=== PATIENT | male | born 1945 | race Caucasian/White ===

== ENCOUNTER 2019-02-18 09:24 | Inpatient (IN) ==
--- NOTE | 2019-02-18 09:34 | Anesthesia Evaluation PreOp ---
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 (denies residual deficit---on plavix, last dose taken 02/12/2019) Other Medical History: Diabetes Type II Anesthesia History: Past Anesthesia (no prior GA) Alcohol Use: rarely Drug use: none Medications and Allergies Ascorbic Acid [Vitamin C] 500 mg PO DAILY 08/19/16 [History] Aspirin 81 mg PO DAILY 08/19/16 [History] Cinnamon Bark [Cinnamon] 500 mg PO DAILY 08/19/16 [History] Lisinopril/Hydrochlorothiazide [Zestoretic 20-12.5 mg Tablet] 1 tab PO DAILY 08/19/16 [History] Pioglitazone HCl [Actos] 30 mg PO DAILY 08/19/16 [History] Clopidogrel [Plavix] 75 mg PO DAILY 02/18/19 [History] Multivitamin [One-Daily Multi-Vitamin] 1 tab PO DAILY 02/18/19 [History] Allergy/AdvReac Type Severity Reaction Status Date / Time aspirin [From Aggrenox] Allergy Headache Verified 02/18/19 10:05 dipyridamole [From Aggrenox] Allergy Headache Verified 02/18/19 10:05 metformin Allergy Rash Verified 08/19/16 07:30 sitagliptin [From Januvia] Allergy Rash Verified 02/18/19 10:05 - Meds/Allergy Pre-op Review Medications Reviewed: Yes Allergies Reviewed: Yes Beta Blockers on Current Med List: No Anesthesia Results - Labs Laboratory Tests 02/08/19 02/08/19 02/08/19 08:01 08:02 08:02 WBC 4.8 Hgb 15.6 Hct 46.2 Plt Count 231 PT 12.0 INR 1.1 APTT 31.9 Sodium 136 Potassium 4.0 BUN 14 Creatinine 0.99 - Imaging EKG: report reviewed (02/18/2019 sinus rhythm, marked LAD, moderate IV conduction delay) Additional studies: 02/04/2019 Stress Impression: Perfusion imaging was negative for ischemia or infarct. Pharmacologic ECG was negative for ischemia at the level of heart rate achieved. Gated EF = >70%. 02/02/2019 Echo Impressions: LVEF 60%. Mild left ventricular diastolic dysfunction. Definity echo contrast was used. Normal right ventricular structure and function. Mild mitral regurgitation. No pulmonary hypertension. No evidence of PFO with agitated saline contrast. 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
[2019-02-18] MEDS ORDERED: Albuterol 2.5 MG/3 ML NEBULIZER IH ONE (09:41)
[2019-02-18] MEDS ORDERED: CeFAZolin Syr 2,000MG/20 ML 2,000 MG/20 ML SYRINGE IVPB ONE (09:41)
[2019-02-18] MEDS ORDERED: Ringers Solution, Lactated 1,000 ML IVC SCH (09:45)
[2019-02-18] MEDS ORDERED: Lidocaine -MPF 4% 5 ML AMPUL ONE (09:56)
[2019-02-18] MEDS ORDERED: Ondansetron 4 MG/2 ML VIAL ONE (09:56)
[2019-02-18] MEDS ORDERED: Dexamethasone 4 MG/ML VIAL ONE (09:56)
[2019-02-18] MEDS ORDERED: *HR* Heparin 5,000 UNIT/ML VIAL ONE ×2 (09:56→14:47)
[2019-02-18] MEDS ORDERED: Lidocaine -MPF 2% 2 ML VIAL ONE ×2 (09:56→12:01)
[2019-02-18] MEDS ORDERED: *HR* Propofol 200 MG/20 ML VIAL IVP ONE (09:56)
[2019-02-18] MEDS ORDERED: *HR* Remifentanil 1 MG VIAL IVP ONE (10:04)
[2019-02-18] MEDS ORDERED: D5% in Lactated Ringers 1,000 ML IVC ONE ×2 (10:05→10:26)
[2019-02-18] MEDS ORDERED: *HR* Phenylephrine 10 MG/ML VIAL ONE (10:10)
[2019-02-18] MEDS ORDERED: Ondansetron 4 MG/2 ML VIAL IVP ONE (10:23)
[2019-02-18] MEDS ORDERED: *HR* Promethazine 25 MG/ML VIAL IVP PRN (10:23)
[2019-02-18] MEDS ORDERED: *HR* OxyCODONE Immed Rel 5 MG TABLET PO PRN ×2 (10:23→17:01)
[2019-02-18] MEDS ORDERED: *HR* HYDROmorphone (PF) 1 MG/ML SYRINGE IVP PRN (10:23)
[2019-02-18] MEDS ORDERED: Heparin 1,000 UNITS/500 mL 500 ML ONE ×2 (10:37→12:08)
[2019-02-18] MEDS ORDERED: Vancomycin 1,000 MG, Sodium Chloride IRRigation 1,000 ML IR ONE (11:20)
--- NOTE | 2019-02-18 11:58 | History & Physical Report ---
Date of Encounter: 02/18/19 Time of Encounter: 11:55 24 Hour HP Update - Instructions Instructions: If the History and Physical is less than 30 days old and was completed prior to A.M. admission and or procedure and has NOT been updated on calendar day of procedure please complete this update prior to performing procedure. - Update Patient reports changes in Medical Condition: No Changes in examination, assessment, or condition: No Changes in Medication: No Preop tests/diagnostics Reviewed: Yes Surgery Remains Indicated: Yes Consent for Planned Operative Procedure(s) Verified: Yes - Pre-Operative Checklist Preoperative Checklist Indicated: Yes Prophylactic Antibiotic Ordered: Yes (vancomycin due to MRSA risk) Home Medications Include Beta Joseph: No Beta Joseph Taken Today (Day of Surgery): No Beta Joseph Taken Yesterday (Day Prior to Surgery): No Is VTE Prophylaxis Indicated?: Yes
[2019-02-18] MEDS ORDERED: *HR* FentaNYL (PF) 100 MCG/2 ML VIAL ONE ×2 (12:02→12:48)
[2019-02-18] MEDS ORDERED: *HR* Midazolam HCl 2 MG/2 ML VIAL ONE (12:02)
[2019-02-18] MEDS ORDERED: Bupivacaine-MPF 0.25% 10 ML VIAL ONE (12:08)
[2019-02-18] MEDS ORDERED: Protamine Sulfate 50 MG/5 ML VIAL IVP ONE (12:08)
[2019-02-18] MEDS ORDERED: Calcium Gluconate 1,000 MG/10 ML VIAL ONE (13:25)
--- NOTE | 2019-02-18 13:28 | Anesthesia Procedures ---
Date of Encounter: 02/18/19 Time of Encounter: 12:30 Procedures: Anesthesia - Arterial Line Consent obtained: written consent Time out performed: Yes Sedation: Versed (mg): 2 Sedation: Fentanyl (mcg): 100 Supplemental Oxygen via Nasal Cannula (L/min): 2 Local Anesthetic: Lidocaine 1% Amount of Anesthetic used (mls): 3 Size (Gauge): 20 Length (inches): 1 3/4 Technique Used: sterile prep, guide wire technique Post-Procedure: line taped into place, dry sterile dressing placed Patient tolerated procedure: well Complications: none Site: Radial R Comments: procedure done ,in holding room, second attempt
[2019-02-18] MEDS ORDERED: NiCARdipine 2.5 MG/10 ML Syringe IVPB ONE (15:12)
[2019-02-18] MEDS ORDERED: *HR* HYDROMORPHONE 2 MG/ML VIAL ONE (15:31)
[2019-02-18] MEDS ORDERED: *HR* Labetalol 20 MG/4 ML SYRINGE IVP ONE (15:44)
--- NOTE | 2019-02-18 16:16 | Operative Note ---
Date of procedure: 02/18/19 Pre-op diagnosis: Symptomatic right internal carotid artery stenosis Post-op diagnosis: same Procedure: Right carotid endarterectomy Complications: None Anesthesia: GETA Surgeon: Adelfo Ross Was there an wellness assistant present: No Estimated blood loss (cc): 100 Specimen: Right carotid plaque Condition: stable Disposition: PACU Procedure in Detail: Indications: The patient is a 73-year-old male with a history of hypertension, diabetes and carotid stenosis. The patient sustained a right hemispheric transient ischemic attack and was found have a 80-99% right internal carotid artery stenosis. A right carotid endarterectomy was recommended to reduce his risk of cerebrovascular accident. Procedure: The patient was identified in the preoperative area. The risks, benefits, and alternatives of the procedure were discussed and all questions were answered. The patient was then taken to the operating room and placed in supine position on the operating table. After the induction of general endotracheal anesthesia, the patient was cleaned and draped in normal sterile fashion. A longitudinal incision was made anterior to the sternocleidomastoid muscle. Hemostasis was obtained via electrocautery. Through a process of blunt, sharp, and electrocautery dissection, the platysma was traversed and the jugular vein was identified. The facial vein was dissected, clamped, divided and ligated with a 2-0 silk suture ligature. The jugular vein was retracted to expose the carotid bifurcation. The patient received 3000 units of heparin intravenously at this time. Proximal dissection of the common and external carotid arteries were performed circumferentially. Dissection of the internal carotid was performed circumferentially. Vessels loops were passed around the internal and external carotid and an umbilical tape was passed from the common carotid artery. The patient received an additional 2000 units of heparin intravenously. Additional heparin was given throughout the case to maintain adequate antic oagulation. After waiting adequate time for the heparin to circulate, the vessels were occluded and a longitudinal arteriotomy was made into the common carotid artery and extended into the internal carotid beyond the plaque. The plaque was long, extended distally and was heavily calcified. Vigorous pulsatile retrograde flow was noted from the internal carotid artery upon release of the vessel loop. Due to the rapid pulsatile retrograde flow, no shunt was placed. A dental Lentner was then used to perform a standard endarterectomy. Proximal and distal endpoints were inspected. No elevated flaps were noted. A Hemashield patch was cut to fit the defect and sutured in place with running 6-0 Prolene. Prior to completing the closure, each vessel was flushed and then reoccluded. Heparinized saline was infused into the lumen. The patch was completed. Flow was restored in the external carotid artery, followed the common carotid artery, lastly the internal carotid artery was opened. A low resistance arterialized signal was present within the internal carotid artery beyond the patch. Thrombin and Gelfoam were used to aid in hemostasis. Meticulous hemostasis was obtained throughout the wound with electrocautery. Platelet rich and platelet poor plasma were infused into the wounds. The sternocleidomastoid was reapproximated with interrupted 3-0 Vicryl. Platelet rich and platelet poor plasma were infused into the wound. A TLS drain was brought through a separate stab incision and sutured in place with 0 silk suture. The platysma was reapproximated with running 3-0 Vicryl. Local anesthetic was infused in the skin. A 3-0 Monocryl was used to reapproximate the skin. A sterile dressing was applied. The patient was extubated, taken to the recovery room in stable condition.
--- NOTE | 2019-02-18 16:38 | Anesthesia Evaluation Post Op ---
Date of Encounter: 02/18/19 Time of Encounter: 16:38 - Vital Signs Vital Signs: Vital Signs/O2 Sat, Most Current Temp Pulse Resp BP Pulse Ox 98.1 F 90 16 178/91 95 02/18/19 16:25 02/18/19 16:25 02/18/19 16:25 02/18/19 16:25 02/18/19 16:25 - Lungs Lungs: Clear Ascult./Percussion - Airway Airway: Non-obstructed - Cardiovascular Regular Rate - Mental Status Mental Status: Alert & Oriented, Answers Appropriately - Pain Pain Scale: 3 Pain Scale used: Numeric (1 - 10) - Nausea Vomiting Nausea Vomiting: Not Present - Hydration Hydration: Ice chips, Santiago catheter - Discharge PostOp Status: Transfer Patient to floor
[2019-02-18] MEDS ORDERED: Ondansetron 4 MG/2 ML VIAL IVP PRN (17:01)
[2019-02-18] MEDS ORDERED: Naloxone 0.4 MG/ML INJ IVP PRN (17:01)
[2019-02-18] MEDS ORDERED: *HR* HYDROcodone/Acet 5/325 mg TABLET PO PRN (17:01)
[2019-02-18] MEDS ORDERED: 0.9 % Sodium Chloride 1,000 ML IVC SCH (17:01)
[2019-02-18] MEDS ORDERED: Acetaminophen 325 MG TABLET PO PRN (17:01)
[2019-02-18] MEDS: *HR* Metoprolol 5 MG/5 ML VIAL IVP SCH (18:09)
[2019-02-18] MEDS: *HR* Labetalol 20 MG/4 ML SYRINGE IVP PRN ×2 (18:58→21:36)
[2019-02-19] MEDS: *HR* Metoprolol 5 MG/5 ML VIAL IVP SCH ×2 (00:14→05:04)
[2019-02-19] MEDS ORDERED: *HR* Heparin 5,000 UNIT/ML VIAL SQ SCH ×2 (06:00)
[2019-02-19 07:19] VITALS: BP 126/73
--- NOTE | 2019-02-19 07:24 | Discharge Summary ---
Orders not resulted at time of discharge: Pending orders 02/17/19 08:09 Red Blood Cells [BBK] Routine 02/18/19 13:17 EKG [ECG 12 lead ECG] [ECG] Stat 02/18/19 14:13 Surgical Pathology [PTH] Routine Date of Encounter: 02/19/19 Time of Encounter: 07:45 - Discharge Diagnosis (1) Carotid stenosis, right Priority: Primary Status: Chronic Comments: The patient is postoperative day #1 after right carotid endarterectomy. His incision is healing well. He has no hematoma. His motor and sensory exam are normal. He will be discharged today. (2) Essential hypertension Priority: Secondary Status: Chronic (3) Type 2 diabetes mellitus with other circulatory complications Priority: Secondary Status: Chronic - Hospital Course Hospital course: Mr. Quiros is a 73 year old male former smoker with a history of hypertension and hyperlipidemia. The patient was found have an 80-99% symptomatic right internal carotid stenosis. He presents he sustained a right hemispheric transient ischemic attack. He is admitted on 02/18/2019. He was taken to the operating room where he underwent a right carotid endarterectomy. He tolerated the procedure well. On postop day #1 his neurologic exam was intact. His incision was healing well. He was discharged in stable condition without complication. - Time Spent with Patient Total time spent providing and/or coordinating discharge services: - Discharge Medications Prescriptions: New OxyCODONE/APAP 5/325 [Percocet 5/325 MG] 1 each PO Q6HR PRN 5 Days #20 tablet PRN Reason: Postoperative pain Continued Aspirin 81 mg PO DAILY Ascorbic Acid [Vitamin C] 500 mg PO DAILY Pioglitazone HCl [Actos] 30 mg PO DAILY Lisinopril/Hydrochlorothiazide [Zestoretic 20-12.5 mg Tablet] 1 tab PO DAILY Cinnamon Bark [Cinnamon] 500 mg PO DAILY Multivitamin [One-Daily Multi-Vitamin] 1 tab PO DAILY Discontinued Clopidogrel [Plavix] 75 mg PO DAILY Home Medications: Ascorbic Acid [Vitamin C] 500 mg PO DAILY 08/19/16 [History] Aspirin 81 mg PO DAILY 08/19/16 [History] Cinnamon Bark [Cinnamon] 500 mg PO DAILY 08/19/16 [History] Lisinopril/Hydrochlorothiazide [Zestoretic 20-12.5 mg Tablet] 1 tab PO DAILY 08/19/16 [History] Pioglitazone HCl [Actos] 30 mg PO DAILY 08/19/16 [History] Multivitamin [One-Daily Multi-Vitamin] 1 tab PO DAILY 02/18/19 [History] OxyCODONE/APAP 5/325 [Percocet 5/325 MG] 1 each PO Q6HR PRN 5 Days #20 tablet 02/19/19 [Rx] Allergies/Adverse Reactions: Allergy/AdvReac Type Severity Reaction Status Date / Time aspirin [From Aggrenox] Allergy Headache Verified 02/18/19 10:05 dipyridamole [From Aggrenox] Allergy Headache Verified 02/18/19 10:05 metformin Allergy Rash Verified 08/19/16 07:30 sitagliptin [From Januvia] Allergy Rash Verified 02/18/19 10:05 Date of admission: 02/18/19 17:00 Primary care physician: Kain Ovalle Procedure(s) Performed: Right carotid endarterectomy Discharging clinician: Adelfo Ross Anticipated date of discharge: 02/19/19 Exam Vital Signs, Last 4 Hours Temp Pulse Resp BP Pulse Ox 02/19/19 07:16 98.3 F 101 18 126/73 96 02/19/19 04:13 98.2 F 103 17 131/75 95 02/19/19 04:07 101 18 131/75 93 02/19/19 03:28 133/82 General: Present: Conversant, No Apparent Distress HEENT: Present: Trachea midline, Pupils equal Neck: Present: Other (Incision clean, dry and intact without erythema or drainage, no hematoma, no pulsatile mass) Cardiac: Present: Reg Rate and Rhythm Lungs: Present: Normal Breath Sounds Neuro: Present: Alert and responsive, No focal deficits noted Abdomen: Present: Soft Vascular: Absent: Cyanosis, Edema - Patient Status Disposition: Home, Self-Care Condition: Good Functional capacity at discharge: independent ambulation Overall status at discharge: patient is back to baseline - Discharge Instructions Instructions: Carotid Endarterectomy (DC) Follow Up With: Adelfo Ross MD [Partnered Physician] - 03/16/19 1:00 pm Kain Ovalle DO [Primary Care Provider] - 02/24/19 2:30 pm Additional Instructions: May remove bandage and shower on 02/20/2019. Wash wound gently and pat to dry. No driving for [address] Ross at [phone] with questions or concerns. - Diet and Activity Activity: increase activity as tolerated Diet: advance to your usual diet
[2019-02-19] MEDS ORDERED: Lisinopril-HCTZ 20-12.5mg TABLET PO SCH (09:00)
[2019-02-19] MEDS ORDERED: Aspirin 81 MG TAB.CHEW PO SCH (09:00)
[2019-02-19] MEDS ORDERED: Ascorbic Acid 500 MG TABLET PO SCH (09:00)
--- NOTE | 2019-02-19 16:18 | Electrocardiograph Report ---
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
== END 2019-02-19 09:28 | disposition home or self-care (01) | DRG 39 ==
LOC: SAMDAY 09:24 → 2NNU 17:00
PROVIDERS: ADMIT Surgery; ATTEND Surgery